=== PATIENT | female | born 1980 | race African-American/Black ===

== ENCOUNTER 2017-05-12 12:52 | Emergency (ER) | payer OTHER ==
[~2017-05-12] VITALS: Ht 162.6 cm; Wt 77.1 kg
[2017-05-12 13:17] VITALS: BP 124/76
== END 2017-05-12 15:43 | disposition home or self-care (01) ==
LOC: ER 12:52
DX: J01.90 Acute sinusitis, unspecified (principal)
CPT/HCPCS: 70450

== ENCOUNTER 2017-05-18 09:54 | Emergency (ER) | payer OTHER ==
[~2017-05-18] VITALS: Ht 177.8 cm; Wt 77.1 kg
[2017-05-18 10:30] VITALS: BP 143/77
== END 2017-05-18 11:12 | disposition home or self-care (01) ==
LOC: ER 09:54
DX: K64.8 Other hemorrhoids (principal); F12.10 Cannabis abuse, uncomplicated

== ENCOUNTER 2018-06-02 14:21 | Emergency (ER) | payer OTHER ==
[~2018-06-02] VITALS: Ht 177.8 cm; Wt 81.6 kg
[2018-06-02 15:30] LABS: Basophils # (auto) 0.1 uL; Basophils % (auto) 0.8 % (0.0-2.0); Eosinophils # (auto) 0.2 uL; Eosinophils % (auto) 2.5 % (0.0-7.0); Hematocrit 35.4 % (36.0-46.0); Hemoglobin 11.4 g/dL (12.2-16.2); Mean Corpuscular Hemoglobin 29.1 pg (28.0-32.0); Mean Corpuscular Hgb Conc. 32.3 g/dL (32.0-36.0); Monocytes # (auto) 0.5 uL; Neutrophils # (auto) 3.8 uL; Neutrophils % (auto) 57.7 % (37.0-80.0); Nucleated Red Blood Cells % 0.1 %; Platelet Count (auto) 207 10^3/uL (140-450); Red Blood Cells 3.93 10^6/uL (4.0-5.20); Red Cell Distribution Width 14.1 % (11.8-14.3); White Blood Cell 6.6 10^3/uL (4.4-10.8)
[2018-06-02 15:45] LABS: Albumin 3.6 g/dL (3.4-5.0); Calcium 8.7 mg/dL (8.5-10.1); Potassium 3.6 mmol/L (3.5-5.1)
[2018-06-02 15:49] LABS: Bilirubin, Total 0.5 mg/dL (0.2-1.0); Total Protein 7.4 g/dL (6.4-8.2)
[2018-06-02 16:37] LABS: Urine Bacteria NONE SEEN /hpf (None Seen); Urine Blood Negative /uL (Negative); Urine Mucus FEW (None Seen); Urine Specific Gravity 1.024 (1.001-1.035); Urine WBC 3 /hpf (0 - 5)
[2018-06-02 18:34] VITALS: BP 107/58
== END 2018-06-02 19:52 | disposition home or self-care (01) ==
LOC: ER 14:21
DX: O26.891 Other specified pregnancy related conditions, first trimester (principal); R10.9 Unspecified abdominal pain; Z3A.01 Less than 8 weeks gestation of pregnancy
CPT/HCPCS: 36415; 76801; 76817; 80053; 81001; 81025; 82150; 83690; 84702; 85025